=== PATIENT | male | born 1980 | race Caucasian/White ===

== ENCOUNTER 2025-02-17 02:15 | Emergency (ER) | payer OTHER ==
[~2025-02-17] VITALS: Ht 175.3 cm; Wt 106.8 kg
[2025-02-17 02:21] VITALS: BP 146/82; PULSE 79; RESP 17; TEMP 97.9; O2SAT 98
[2025-02-17] MEDS: KETOROLAC TROMETHAMINE 30 MG/ML VIAL IM ONE (05:02)
[2025-02-17] MEDS ORDERED: LIDO-57 TP (05:52)
[2025-02-17] MEDS ORDERED: TRAM50TA5 PO (05:52)
== END 2025-02-17 06:08 | disposition home or self-care (01) ==
LOC: EMS 02:50
DX: M25.551 Pain in right hip (principal); M76.31 Iliotibial band syndrome, right leg; Z98.890 Other specified postprocedural states
CPT/HCPCS: 99283; 73502; 96372; J1885